=== PATIENT | male | born 1940 | race American Indian/Alaskan Native ===

== ENCOUNTER 2019-09-22 18:10 | Inpatient (IN) | payer MEDICARE, OTHER ==
[~2019-09-22] VITALS: Ht 175.3 cm; Wt 70.4 kg
[2019-09-22 18:57] LABS: BASOPHILS # (AUTO) 0.1 X10'3 (0-0.2); BASOPHILS % (AUTO) 0.5 % (0-1); EOSINOPHILS # (AUTO) 0.6 X10'3 (0-0.9); EOSINOPHILS % (AUTO) 4.7 % (0-6); HEMATOCRIT 33.8 % (42.0-52.0); HEMOGLOBIN 11.5 g/dl (14.0-17.9); LYMPHOCYTES # (AUTO) 1.6 X10'3 (1.1-4.8); LYMPHOCYTES % (AUTO) 13.3 % (21-51); MEAN CORPUSCULAR HEMOGLOBIN 29.3 PG (27.0-31.0); MEAN CORPUSCULAR HGB CONC 34.1 g/dL (33.0-36.5); MEAN CORPUSCULAR VOLUME 85.9 FL (78-98); MEAN PLATELET VOLUME 6.3 FL (7.4-10.4); MONOCYTES # (AUTO) 0.8 X10'3 (0-0.9); MONOCYTES % (AUTO) 6.9 % (2-12); NEUTROPHILS # (AUTO) 8.8 X10'3 (1.8-7.7); NEUTROPHILS % (AUTO) 74.6 % (42-75); PLATELET COUNT 558 X10'3 (140-440); RED BLOOD COUNT 3.93 X10'6 (4.70-6.10); RED CELL DISTRIBUTION WIDTH 16.8 % (11.5-14.5); WHITE BLOOD COUNT 11.7 X10'3 (4.5-11.0)
[2019-09-22 19:11] LABS: ALANINE AMINOTRANSFERASE 34 U/L (12-78); ALBUMIN 1.8 G/DL (3.4-5.0); ALBUMIN/GLOBULIN RATIO 0.3 (1.1-1.5); ALKALINE PHOSPHATASE 204 IU/L (46-116); ANION GAP 8 (8-16); ASPARTATE AMINO TRANSFERASE 49 U/L (10-37); BILIRUBIN,TOTAL 0.3 MG/DL (0.1-1.0); BLOOD UREA NITROGEN 16 MG/DL (7-18); BUN/CREATININE RATIO 11.5 (5.4-32.0); CHLORIDE 101 MMOL/L (99-107); CREATININE 1.39 MG/DL (0.60-1.10); GLUCOSE 101 MG/DL (70-104); LIPASE 265 U/L (73-393); POTASSIUM 4.1 MMOL/L (3.5-5.1); SODIUM 132 MMOL/L (135-145); TOTAL CARBON DIOXIDE 23.2 MMOL/L (24-32); TOTAL PROTEIN 7.8 G/DL (6.4-8.2); eGFR 49 ML/MIN
[2019-09-22] MEDS ORDERED: FENO48TA15 PO (19:32)
[2019-09-22] MEDS ORDERED: FLO0.4C PO (19:32)
[2019-09-22] MEDS ORDERED: SIMV10TA2 PO (19:32)
[2019-09-22] MEDS ORDERED: SUCR1TAB PO (19:32)
[2019-09-22] MEDS ORDERED: PANT40TA4 PO (19:32)
[2019-09-22] MEDS ORDERED: AMLO2.5T2 PO (19:32)
[2019-09-22] MEDS ORDERED: acetaminophen 325mg tablet PO PRN ×2 (20:05)
[2019-09-22] MEDS ORDERED: magnesium Cl slow-release 64mg tablet PO PRN (20:05)
[2019-09-22] MEDS ORDERED: ondansetron/PF 4mg/2ml inj IV PRN (20:05)
[2019-09-22] MEDS ORDERED: mag hydrox/Alum hydrox/simeth 30ml oral suspension PO PRN (20:05)
[2019-09-22] MEDS ORDERED: bisacodyl 10mg suppository rectal RC PRN (20:05)
[2019-09-22] MEDS ORDERED: potassium CL 10mEq/100ml bag 100 ML IV PRN ×2 (20:05)
[2019-09-22] MEDS ORDERED: magnesium 2GM in 50ml NS 50 ML IV PRN (20:05)
[2019-09-22] MEDS ORDERED: magnesium hydroxide 30ml (MOM) UD suspension PO PRN (20:05)
[2019-09-22] MEDS ORDERED: potassium Cl 20 mEq SR tablet PO PRN ×2 (20:05)
[2019-09-22] MEDS ORDERED: magnesium 4gm in 100ml NS 100 ML IV PRN (20:05)
[2019-09-22] MEDS: atorvastatin 10mg tablet PO SCH (21:51)
[2019-09-22] MEDS: tamsulosin 0.4mg capsule PO SCH (21:51)
[2019-09-22] MEDS ORDERED: diphenhydrAMINE 50 mg/ml inj IV PRN (22:30)
[2019-09-22 23:19] VITALS: BP 130/59
[2019-09-23 05:32] LABS: BASOPHILS % (AUTO) 0.3 % (0-1); EOSINOPHILS # (AUTO) 0.8 X10'3 (0-0.9); EOSINOPHILS % (AUTO) 7.3 % (0-6); HEMATOCRIT 32.3 % (42.0-52.0); HEMOGLOBIN 10.7 g/dl (14.0-17.9); LYMPHOCYTES # (AUTO) 1.4 X10'3 (1.1-4.8); LYMPHOCYTES % (AUTO) 12.3 % (21-51); MEAN CORPUSCULAR HEMOGLOBIN 28.9 PG (27.0-31.0); MEAN CORPUSCULAR HGB CONC 33.2 g/dL (33.0-36.5); MEAN CORPUSCULAR VOLUME 86.9 FL (78-98); MEAN PLATELET VOLUME 6.7 FL (7.4-10.4); MONOCYTES % (AUTO) 8.5 % (2-12); NEUTROPHILS # (AUTO) 8.1 X10'3 (1.8-7.7); NEUTROPHILS % (AUTO) 71.6 % (42-75); PLATELET COUNT 565 X10'3 (140-440); RED BLOOD COUNT 3.71 X10'6 (4.70-6.10); RED CELL DISTRIBUTION WIDTH 16.6 % (11.5-14.5); WHITE BLOOD COUNT 11.3 X10'3 (4.5-11.0)
[2019-09-23 05:42] LABS: ALANINE AMINOTRANSFERASE 29 U/L (12-78); ALBUMIN 1.6 G/DL (3.4-5.0); ALBUMIN/GLOBULIN RATIO 0.3 (1.1-1.5); ALKALINE PHOSPHATASE 185 IU/L (46-116); ANION GAP 9 (8-16); ASPARTATE AMINO TRANSFERASE 41 U/L (10-37); BILIRUBIN,TOTAL 0.3 MG/DL (0.1-1.0); BLOOD UREA NITROGEN 16 MG/DL (7-18); BUN/CREATININE RATIO 12.5 (5.4-32.0); CALCIUM 8.8 MG/DL (8.5-10.1); CHLORIDE 101 MMOL/L (99-107); CREATININE 1.28 MG/DL (0.60-1.10); GLUCOSE 81 MG/DL (70-104); MAGNESIUM 1.6 MG/DL (1.5-2.4); POTASSIUM 3.8 MMOL/L (3.5-5.1); SODIUM 132 MMOL/L (135-145); TOTAL CARBON DIOXIDE 22.5 MMOL/L (24-32); TOTAL PROTEIN 6.9 G/DL (6.4-8.2); eGFR 54 ML/MIN
--- NOTE | 2019-09-23 06:24 | NUR ---
Problems reprioritized. Patient report given, questions answered & plan of care reviewed with GENARO RN.
--- NOTE | 2019-09-23 06:58 | NUR ---
Patient in room [facility]. I have received report from YOCASTA CORLEY and had the opportunity to ask questions and assume patient care.
[2019-09-23 07:45] VITALS: BP 118/63
[2019-09-23] MEDS: amLODIPine 5mg tablet PO SCH (07:47)
[2019-09-23] MEDS: docusate sod 100mg capsule PO SCH ×2 (07:48→21:02)
[2019-09-23] MEDS: enoxaparin 40mg/0.4ml syringe SQ SCH (07:51)
[2019-09-23] MEDS: K and/or MAG REPLACEMENT MC SCH ×2 (08:00→20:00)
[2019-09-23] MEDS ORDERED: cefepime 1GM/NS ADD-VANTAGE 100 ML IV SCH (08:00)
[2019-09-23 11:00] VITALS: BP 122/64
[2019-09-23 11:07] LABS: ALBUMIN 1.6 G/DL (3.4-5.0); ANION GAP 10 (8-16); BLOOD UREA NITROGEN 16 MG/DL (7-18); BUN/CREATININE RATIO 11.9 (5.4-32.0); CHLORIDE 100 MMOL/L (99-107); CREATININE 1.35 MG/DL (0.60-1.10); GLUCOSE 107 MG/DL (70-104); SODIUM 132 MMOL/L (135-145); TOTAL CARBON DIOXIDE 22.4 MMOL/L (24-32); TROPONIN I < 0.04 NG/ML (0.0-0.05); eGFR 51 ML/MIN
--- NOTE | 2019-09-23 11:32 | NUR ---
Malnutrition Consult: Pt admit w/ L upper lobe PNA, empyema, chronic renal failure; hx HTN, COPD. Pt has no edema/wounds, BMI 23 s/p gurnery scale this admit, and PO 100% heart healthy breakfast this AM. At this time pt does not meet minimum malnutrition criteria. Will continue to monitor. Addendum: 09/23/19 at [address] Amended: Links added.
--- NOTE | 2019-09-23 11:45 | NUR ---
Problems reprioritized. Patient report given, questions answered & plan of care reviewed with Ale CORLEY.
[2019-09-23 12:00] VITALS: BP 108/51
--- NOTE | 2019-09-23 12:02 | NUR ---
Patient in room PCU 3014. I have received report from Rick CORLEY and had the opportunity to ask questions and assume patient care.
[2019-09-23 15:00] VITALS: BP 120/58
[2019-09-23 18:00] VITALS: BP 130/63
--- NOTE | 2019-09-23 18:30 | NUR ---
Patient in room PCU 3014. I have received report from Debi CORLEY and had the opportunity to ask questions and assume patient care.
--- NOTE | 2019-09-23 18:37 | NUR ---
Problems reprioritized. Patient report given, questions answered & plan of care reviewed with Betty CORLEY. Pt. in good spirits. Offers no complaints.
[2019-09-23] MEDS: lactobacillus rhamnosus 10,000 MMU CELLS/CAPSULE PO SCH (21:02)
[2019-09-23] MEDS: tamsulosin 0.4mg capsule PO SCH (21:02)
[2019-09-23] MEDS: atorvastatin 10mg tablet PO SCH (21:02)
[2019-09-23 22:00] VITALS: BP 123/65
--- NOTE | 2019-09-23 22:00 | NUR ---
Patient refused orthostatic vitals this shift but did allow regular vitals to be taken. He said he did not feel he had the strength to sit or stand up.
[2019-09-24] VITALS (8 sets, daily range): BP systolic 86–134; BP diastolic 54–69
--- NOTE | 2019-09-24 06:08 | NUR ---
Problems reprioritized. Patient report given, questions answered & plan of care reviewed with Debi CORLEY.
--- NOTE | 2019-09-24 06:18 | NUR ---
Problems reprioritized. Patient report given, questions answered & plan of care reviewed with Betty CORLEY. Addendum: 09/24/19 at 0644 by Debi Katz RN Patient in room [place] [id number]. I have received report from Betty CORLEY and had the opportunity to ask questions and assume patient care.
[2019-09-24 06:30] LABS: BASOPHILS % (AUTO) 0.3 % (0-1); EOSINOPHILS % (AUTO) 8.5 % (0-6); HEMATOCRIT 35.6 % (42.0-52.0); HEMOGLOBIN 11.8 g/dl (14.0-17.9); LYMPHOCYTES # (AUTO) 1.7 X10'3 (1.1-4.8); LYMPHOCYTES % (AUTO) 14.4 % (21-51); MEAN CORPUSCULAR HEMOGLOBIN 28.4 PG (27.0-31.0); MEAN CORPUSCULAR HGB CONC 33.2 g/dL (33.0-36.5); MEAN CORPUSCULAR VOLUME 85.6 FL (78-98); MEAN PLATELET VOLUME 6.6 FL (7.4-10.4); MONOCYTES # (AUTO) 0.9 X10'3 (0-0.9); MONOCYTES % (AUTO) 7.7 % (2-12); NEUTROPHILS # (AUTO) 8.1 X10'3 (1.8-7.7); NEUTROPHILS % (AUTO) 69.1 % (42-75); PLATELET COUNT 592 X10'3 (140-440); RED BLOOD COUNT 4.15 X10'6 (4.70-6.10); RED CELL DISTRIBUTION WIDTH 17.4 % (11.5-14.5); WHITE BLOOD COUNT 11.7 X10'3 (4.5-11.0)
[2019-09-24 06:46] LABS: ALANINE AMINOTRANSFERASE 38 U/L (12-78); ALBUMIN 1.8 G/DL (3.4-5.0); ALBUMIN/GLOBULIN RATIO 0.3 (1.1-1.5); ALKALINE PHOSPHATASE 208 IU/L (46-116); ANION GAP 10 (8-16); ASPARTATE AMINO TRANSFERASE 50 U/L (10-37); BILIRUBIN,TOTAL 0.4 MG/DL (0.1-1.0); BLOOD UREA NITROGEN 19 MG/DL (7-18); CALCIUM 9.5 MG/DL (8.5-10.1); CHLORIDE 100 MMOL/L (99-107); CREATININE 1.36 MG/DL (0.60-1.10); GLUCOSE 89 MG/DL (70-104); MAGNESIUM 1.7 MG/DL (1.5-2.4); POTASSIUM 4.2 MMOL/L (3.5-5.1); SODIUM 132 MMOL/L (135-145); TOTAL CARBON DIOXIDE 22.4 MMOL/L (24-32); TOTAL PROTEIN 7.9 G/DL (6.4-8.2); eGFR 51 ML/MIN
[2019-09-24] MEDS: lactobacillus rhamnosus 10,000 MMU CELLS/CAPSULE PO SCH ×2 (07:48→21:04)
[2019-09-24] MEDS: docusate sod 100mg capsule PO SCH ×2 (07:49→21:04)
[2019-09-24] MEDS: amLODIPine 5mg tablet PO SCH (07:49)
[2019-09-24] MEDS: enoxaparin 40mg/0.4ml syringe SQ SCH (07:49)
[2019-09-24] MEDS ORDERED: levoFLOXACIN-Levaquin 750MG/D5 150 ML IV SCH (08:00)
[2019-09-24] MEDS: K and/or MAG REPLACEMENT MC SCH ×2 (08:00→20:00)
[2019-09-24] MEDS ORDERED: normal saline 1000ml 1,000 ML IVB ONE (09:56)
--- NOTE | 2019-09-24 10:16 | NUR ---
Patient had positive orthostatics, MD made aware with new orders to administer 1 liter IVF and recheck orthostatics.
--- NOTE | 2019-09-24 18:18 | NUR ---
Patient in room PCU 3014. I have received report from Debi CORLEY and had the opportunity to ask questions and assume patient care.
--- NOTE | 2019-09-24 18:32 | NUR ---
Problems reprioritized. Patient report given, questions answered & plan of care reviewed with Betty CORLEY.
[2019-09-24] MEDS: atorvastatin 10mg tablet PO SCH (21:04)
[2019-09-24] MEDS: tamsulosin 0.4mg capsule PO SCH (21:04)
[2019-09-24] MEDS ORDERED: diphenhydrAMINE 50 mg/ml inj IV PRN (23:05)
--- NOTE | 2019-09-24 23:05 | NUR ---
promotional table spacer PAGER ID: [phone] MESSAGE: Patient Ananth Valentine RM [id number] Patient had a 25mg IVP Benadryl given a couple nights ago for insomnia and is requesting this again but it was only a one time order. Can I get this ordered again for tonight? Thanks! Betty CORLEY ext. [phone]
[2019-09-25 02:00] VITALS: BP 119/68
[2019-09-25 05:40] LABS: ALANINE AMINOTRANSFERASE 58 U/L (12-78); ALBUMIN 1.7 G/DL (3.4-5.0); ALBUMIN/GLOBULIN RATIO 0.3 (1.1-1.5); ALKALINE PHOSPHATASE 205 IU/L (46-116); ANION GAP 7 (8-16); ASPARTATE AMINO TRANSFERASE 65 U/L (10-37); BILIRUBIN,TOTAL 0.3 MG/DL (0.1-1.0); BLOOD UREA NITROGEN 21 MG/DL (7-18); BUN/CREATININE RATIO 16.2 (5.4-32.0); CALCIUM 9.2 MG/DL (8.5-10.1); CHLORIDE 101 MMOL/L (99-107); GLUCOSE 100 MG/DL (70-104); MAGNESIUM 1.5 MG/DL (1.5-2.4); POTASSIUM 3.8 MMOL/L (3.5-5.1); SODIUM 131 MMOL/L (135-145); TOTAL CARBON DIOXIDE 22.6 MMOL/L (24-32); TOTAL PROTEIN 7.5 G/DL (6.4-8.2); eGFR 53 ML/MIN
[2019-09-25 05:42] LABS: BASOPHILS % (AUTO) 0.3 % (0-1); EOSINOPHILS # (AUTO) 0.7 X10'3 (0-0.9); EOSINOPHILS % (AUTO) 6.6 % (0-6); HEMATOCRIT 34.4 % (42.0-52.0); HEMOGLOBIN 11.2 g/dl (14.0-17.9); LYMPHOCYTES # (AUTO) 1.2 X10'3 (1.1-4.8); LYMPHOCYTES % (AUTO) 11.2 % (21-51); MEAN CORPUSCULAR HEMOGLOBIN 28.3 PG (27.0-31.0); MEAN CORPUSCULAR HGB CONC 32.7 g/dL (33.0-36.5); MEAN CORPUSCULAR VOLUME 86.5 FL (78-98); MEAN PLATELET VOLUME 6.8 FL (7.4-10.4); MONOCYTES # (AUTO) 0.8 X10'3 (0-0.9); NEUTROPHILS # (AUTO) 7.8 X10'3 (1.8-7.7); NEUTROPHILS % (AUTO) 73.9 % (42-75); PLATELET COUNT 585 X10'3 (140-440); RED BLOOD COUNT 3.97 X10'6 (4.70-6.10); RED CELL DISTRIBUTION WIDTH 17.1 % (11.5-14.5); WHITE BLOOD COUNT 10.5 X10'3 (4.5-11.0)
--- NOTE | 2019-09-25 06:34 | NUR ---
Problems reprioritized. Patient report given, questions answered & plan of care reviewed with Ira CORLEY.
--- NOTE | 2019-09-25 06:35 | NUR ---
Patient in room PCU 3014. I have received report from JORY Hernández and had the opportunity to ask questions and assume patient care. Pt sleeping comfortably.
--- NOTE | 2019-09-25 06:37 | NUR ---
Patient in room PCU 3014. I have received report from Betty CORLEY and had the opportunity to ask questions and assume patient care. Patient awake on report and resting comfortably in bed.
[2019-09-25 07:00] VITALS: BP 125/65
[2019-09-25] MEDS: lactobacillus rhamnosus 10,000 MMU CELLS/CAPSULE PO SCH (07:21)
[2019-09-25] MEDS: enoxaparin 40mg/0.4ml syringe SQ SCH (07:21)
[2019-09-25] MEDS: amLODIPine 5mg tablet PO SCH (07:22)
[2019-09-25] MEDS: docusate sod 100mg capsule PO SCH (07:22)
[2019-09-25 08:00] VITALS: BP_SYST 109; BP_SYST 124; BP_SYST 130; BP_DIAS 60; BP_DIAS 65; BP_DIAS 66
[2019-09-25] MEDS: K and/or MAG REPLACEMENT MC SCH (08:00)
[2019-09-25] MEDS ORDERED: LEVO500T2 PO (08:22)
--- NOTE | 2019-09-25 09:30 | NUR ---
DC Viera due to patient discharge. No complications and encouraged patient to void que 30 minutes. Will continue to monitor for urination frequency.
--- NOTE | 2019-09-25 10:30 | NUR ---
[place] documentation: I have reviewed and agree with all interventions, assessments performed and documented by JORY Mcpherson.
--- NOTE | 2019-09-25 10:30 | NUR ---
[place] Medication Administration: For this medication-pass time frame, all medication were reviewed, dispensed, administered and documented per hospital policy by JORY Mcpherson.
--- NOTE | 2019-09-25 10:40 | NUR ---
Patient stable for discharge per MD orders. All discharge instructions reviewed with patient and all questions reviewed. Home prescription returned to patient from [facility]. PIVs and surveillance monitor discontinued. Belongings collected and sent with patient. Patient brought to lobby via wheelchair and picked up in personal vehicle. CUt patient armbands at time of discharge.
--- NOTE | 2019-09-26 14:05 | NUR ---
Case Management DC follow up: Spoke with pt via telephone. Status post: dizziness, PNE AV empyema. reports:"alive and kicking, just tired, up and moving around" Denies: acute/continuous cp, emergent/worsening/SOB, acute general pain, resp distress, N/V, vertigo, sycope episodes, STONE blurry vision, abd pain/distension, diarrhea, constipation, bladder pain, dysuria, polyuria, hematuria, retention, urgency, unexplained bleeding/bruising,fever. Pt back to baseline w/urination, self cath 4x daily. Went over orthostatic hypotension protocol as a precaution, pt verbalizes compliance, staying hydrated. Verbalizes understanding of s/s that would warrant -/ER visit for evaluation. Verbalizes understanding of Rx: Levaquin 500mg once daily, why prescribed, resumes current Rx as ordered, denies ase r/t polypharmacy. Acknowledges need to schedule/keep follow up appts w/PCP/Dr Mendiola [facility], will call to schedule. Verbalizes compliance w/DC aftercare. Needs met, questions answered at DC, no further questions r/t post status DC at this time.
== END 2019-09-25 10:40 | disposition home or self-care (01) | DRG 193 ==
LOC: ER 18:11 → UNDOADMIN 20:03 → ED HOLD 20:03 → SUR 3N 21:39 → ED HOLD 22:15 → PCU 3S 09-23 11:38
PROVIDERS: ADMIT Family Medicine; ATTEND Internal Medicine
DX: J18.9 Pneumonia, unspecified organism (principal); J86.9 Pyothorax without fistula; J44.0 Chronic obstructive pulmonary disease with (acute) lower respiratory infection; I95.1 Orthostatic hypotension; N18.3 Chronic kidney disease, stage 3 (moderate); N40.0 Benign prostatic hyperplasia without lower urinary tract symptoms; D63.8 Anemia in other chronic diseases classified elsewhere; E78.00 Pure hypercholesterolemia, unspecified; E78.5 Hyperlipidemia, unspecified; I12.9 Hypertensive chronic kidney disease with stage 1 through stage 4 chronic kidney disease, or unspecified chronic kidney disease; Z79.899 Other long term (current) drug therapy
CPT/HCPCS: 36415; 80048; 80053; 83690; 83735; 84484; 85025; 87081; 93005; 93308; 97116; 97161; 97530; 99285; G0378; J0692; J1200; J1650; J1956; J7030